=== PATIENT | male | born 1995 | race Two or more races ===

== ENCOUNTER 2018-04-16 02:12 | Emergency (ER) | payer OTHER ==
[~2018-04-16] VITALS: Ht 180.3 cm; Wt 89.4 kg
[~2018-04-16 02:12] MED LIST: BENADRYL50 MG PO; FOCALIN XR20 MG PO; MEDROL4 MG PO
== END 2018-04-16 13:27 | disposition home or self-care (01) ==
LOC: ER 02:12
DX: K52.89 Other specified noninfective gastroenteritis and colitis (principal); E86.0 Dehydration; L50.8 Other urticaria